=== PATIENT | female | born 2000 | race Caucasian/White ===

== ENCOUNTER → 2023-02-10 | Outpatient (CLI) | payer OTHER ==
--- NOTE | 2023-02-10 11:36 | XR ---
EXAMINATION TYPE: XR ankle complete LT DATE OF EXAM: 02/10/2023 COMPARISON: NONE HISTORY: Pain TECHNIQUE: 3 views of the left ankle are submitted for evaluation. FINDINGS: There is no evidence for acute fracture or dislocation. Ankle mortise is intact. Minimal so ft tissue swelling of the ankle. No radiopaque foreign body. IMPRESSION: 1. No evidence for acute fracture. 2. Minimal soft tissue swelling of the ankle.
--- NOTE | 2023-02-10 11:37 | XR ---
EXAMINATION TYPE: XR knee complete LT DATE OF EXAM: 02/10/2023 11:05 AM INDICATION: Patient age:Female; 22 years old; Reason for study: M25.562 [id number]; [facility]. COMPARISON: None. TECHNIQUE: The Left knee(s) was examined in Frontal, lateral and oblique projections. FINDINGS: No evidence of any acute osseous pathology, soft tissue swelling, or joint effusion is no efren. IMPRESSION: 1. No acute osseous pathology.
== END | disposition home or self-care (01) ==
LOC: RADXRMAIN 10:34
PROVIDERS: ATTEND Family Medicine
DX: M25.562 Pain in left knee (principal); M79.89 Other specified soft tissue disorders

== ENCOUNTER 2023-10-15 09:06 | Emergency (ER) | payer OTHER ==
--- NOTE | 2023-10-15 09:27 | ED ---
Abdominal Pain HPI - General Chief Complaint: Abdominal Pain Stated Complaint: L Abd Pain Time Seen by Provider: 10/15/23 09:11 Source: patient, RN notes reviewed Mode of arrival: ambulatory Limitations: no limitations - History of Present Illness Initial Comments: This is a 23-year-old female who presents to the emergency department for abdominal pain. States that last month she had been dealing with left upper quadrant abdominal pain. She went to [facility] and her workup was negative. She was advised that this may be related to gas. She took gas medication without relief in symptoms. She was then advised that it may be related to anxiety and started taking anxiety medications. She did seem to have some improvement after that, however pain then returned again a couple of days ago. States that it seems to be coming and going in waves. Denies any nausea/vomiting associated with this. Also denies any diarrhea or constipation. MD Complaint: abdominal pain - Related Data Home Medications Medication Instructions Recorded Confirmed Norelgestromin/Ethin.estradiol 1 patch TRANSDERM SA 10/15/23 10/15/23 [Xulane 150-35 Mcg/Day Patch] cloNIDine HCL [Catapres] 0.1 mg PO BID 10/15/23 10/15/23 Previous Rx's Medication Instructions Recorded Dicyclomine [Bentyl] 20 mg PO QID PRN #20 tablet 10/15/23 Allergies Allergy/AdvReac Type Severity Reaction Status Date / Time sulfamethoxazole AdvReac Nausea/Rash Verified 10/15/23 10:56 [From Bactrim] /Hives trimethoprim [From Bactrim] AdvReac Nausea Verified 10/07/14 17:04 Review of Systems ROS Statement: Those systems with pertinent positive or pertinent negative responses have been documented in the HPI. ROS Other: All systems not noted in ROS Statement are negative. Past Medical History Past Medical History: No Reported History History of Any Multi-Drug Resistant Organisms: None Reported Past Surgical History: No Surgical Hx Reported Past Psychological History: No Psychological Hx Reported Smoking Status: Vaper Past Alcohol Use History: None Reported Past Drug Use History: None Reported General Exam Limitations: no limitations General appearance: alert, in no apparent distress Head exam: Present: atraumatic, normocephalic, normal inspection Respiratory exam: Present: normal lung sounds bilaterally. Absent: respiratory distress, wheezes, rales, rhonchi, stridor Cardiovascular Exam: Present: regular rate, normal rhythm, normal heart sounds. Absent: systolic murmur, diastolic murmur, rubs, gallop, clicks GI/Abdominal exam: Present: soft, tenderness (LUQ), normal bowel sounds. Absent: distended, guarding, rebound, rigid Neurological exam: Present: alert, oriented X3, CN II-XII intact Psychiatric exam: Present: normal affect, normal mood Skin exam: Present: warm, dry, intact, normal color. Absent: rash Course Vital Signs 10/15/23 10/15/23 09:07 11:31 Temperature 97.8 F 98.4 F Pulse Rate 109 H 89 Respiratory 18 18 Rate Blood Pressure 129/85 120/58 O2 Sat by Pulse 100 99 Oximetry Medical Decision Making - Medical Decision Making This is a 23 year old female who presents to the emergency department for abdominal pain. Was pt. sent in by a medical professional or institution? @ -No Did you speak to anyone other than the patient for history? @ -No Did you review nursing and triage notes? @ -Yes, and I agree, it is accurate with regards to the patient's symptoms. Were old charts reviewed? @ -No Differential Diagnosis? @ -Differential Abdominal Pain Women: Appendicitis, Cholecystitis, diverticulosis, ischemic bowel, pancreatitis, hepatitis, UTI, gastroenteritis, AAA, incarcerated hernia, bowel obstruction, constipation, inflammatory bowel, hepatitis, peptic ulcer disease, splenic infarction, perforated viscus, vulvitis, ovarian torsion, PID, kidney stone, placenta abruption, this is not meant to be an all-inclusive list EKG interpreted by me (3pts min.)? @ -Not obtained X-rays interpreted by me (1pt min.)? @ -Not obtained CT interpreted by me (1pt min.)? @ -CT scan of the abdomen and pelvis obtained. My interpretation identifies no evidence of bowel wall thickening or free air. U/S interpreted by me (1pt. min.)? @ -Not obtained What testing was considered but not performed? (CT, X-rays, U/S, labs)? Why? @ -None What meds were considered but not given? Why? @ -None Did you discuss the management of the patient with other professionals? @ -No Did you reconcile home meds? @ -No Was smoking cessation discussed for >3mins.? @ -No Was critical care preformed (if so, how long)? @ -No Were there social determinants of health that impacted care today? How? (Homelessness, low income, unemployed, alcoholism, drug addiction, transportation, low edu. Level, literacy, decrease access to med. care, alf, rehab)? @ -No Was there de-escalation of care discussed even if they declined? (Discuss DNR or withdrawal of care, Hospice)? @ -No What co-morbidities impacted this encounter? (DM, HTN, Smoking, COPD, CAD, Cancer, CVA, Hep., AIDS, mental health diagnosis, sleep apnea, morbid obesity)? @ -None Was patient admitted / discharged? @ -Discharged. Lab work unremarkable. Urinalysis has some bacteria, but was not overtly positive for signs of infection. Urine sent for culture. CT scan of the abdomen pelvis obtained revealing no acute process. Patient treated with IV fluids, Toradol, and Bentyl. She had significant relief in symptoms afterwards. Discussed with the patient the possibility of her developing IBS given that this has been a recurrent issue. Rx for Bentyl provided with dosing instructions reviewed. Patient discharged home in stable condition and advised to follow-up with her primary care provider. Undiagnosed new problem with uncertain prognosis? @ -None Drug Therapy requiring intensive monitoring for toxicity (Heparin, Nitro, Insulin, Cardizem)? @ -None Were any procedures done? @ -None Diagnosis/symptom? @ -Abdominal pain Acute, or Chronic, or Acute on Chronic? @ -Acute Uncomplicated (without systemic symptoms) or Complicated (systemic symptoms)? @ -Uncomplicated Side effects of treatment? @ -None Exacerbation, Progression, or Severe Exacerbation] @ -Not applicable Poses a threat to life or bodily function? @ -No Return precautions reviewed in depth, the patient is instructed to return to the emergency department with any new, worsening, or concerning symptoms. Patient verbalized understanding. This case was discussed in detail with the attending ED physician, Dr. Mccullough. Presentation, findings, and treatment plan discussed in detail as well. - Lab Data Result diagrams: 10/15/23 09:21 10/15/23 09:21 Lab Results 10/15/23 10/15/23 10/15/23 Range/Units 09:21 09:21 09:21 WBC 6.5 (3.8-10.6) k/uL RBC 4.36 (3.80-5.40) m/uL Hgb 12.2 (11.4-16.0) gm/dL Hct 38.6 (34.0-46.0) % MCV 88.5 (80.0-100.0) fL MCH 28.1 (25.0-35.0) pg MCHC 31.7 (31.0-37.0) g/dL RDW 14.5 (11.5-15.5) % Plt Count 335 (150-450) k/uL MPV 8.1 Neutrophils % 66 % Lymphocytes % 26 % Monocytes % 4 % Eosinophils % 1 % Basophils % 1 % Neutrophils # 4.3 (1.3-7.7) k/uL Lymphocytes # 1.7 (1.0-4.8) k/uL Monocytes # 0.3 (0-1.0) k/uL Eosinophils # 0.1 (0-0.7) k/uL Basophils # 0.0 (0-0.2) k/uL Sodium 137 (137-145) mmol/L Potassium 5.5 H (3.5-5.1) mmol/L Chloride 107 (98-107) mmol/L Carbon Dioxide 19 L (22-30) mmol/L Anion Gap 11 mmol/L BUN 7 (7-17) mg/dL Creatinine 0.82 (0.52-1.04) mg/dL Est GFR (CKD-EPI)AfAm >90 (>60 ml/min/1.73 sqM) Est GFR (CKD-EPI)NonAf >90 (>60 ml/min/1.73 sqM) Glucose 104 H (74-99) mg/dL Plasma Lactic Acid Bari (0.7-2.0) mmol/L Calcium 9.4 (8.4-10.2) mg/dL Total Bilirubin 1.2 (0.2-1.3) mg/dL AST 51 H (14-36) U/L ALT 18 (4-34) U/L Alkaline Phosphatase 59 (38-126) U/L Total Protein 8.1 (6.3-8.2) g/dL Albumin 4.5 (3.5-5.0) g/dL Amylase 50 (30-110) U/L Lipase 91 (23-300) U/L HCG, Qual Not Detected Urine Color Yellow Urine Appearance Cloudy H (Clear) Urine pH 6.0 (5.0-8.0) Ur Specific Fleming 1.019 (1.001-1.035) Urine Protein Trace H (Negative) Urine Glucose (UA) Negative (Negative) Urine Ketones Negative (Negative) Urine Blood Negative (Negative) Urine Nitrite Negative (Negative) Urine Bilirubin Negative (Negative) Urine Urobilinogen 2.0 (<2.0) mg/dL Ur Leukocyte Esterase Negative (Negative) Urine WBC 4 (0-5) /hpf Ur Squamous Epith Cells 8 H (0-4) /hpf Urine Bacteria Many H (None) /hpf Urine Mucus Rare H (None) /hpf 10/15/23 Range/Units 09:21 WBC (3.8-10.6) k/uL RBC (3.80-5.40) m/uL Hgb (11.4-16.0) gm/dL Hct (34.0-46.0) % MCV (80.0-100.0) fL MCH (25.0-35.0) pg MCHC (31.0-37.0) g/dL RDW (11.5-15.5) % Plt Count (150-450) k/uL MPV Neutrophils % % Lymphocytes % % Monocytes % % Eosinophils % % Basophils % % Neutrophils # (1.3-7.7) k/uL Lymphocytes # (1.0-4.8) k/uL Monocytes # (0-1.0) k/uL Eosinophils # (0-0.7) k/uL Basophils # (0-0.2) k/uL Sodium (137-145) mmol/L Potassium (3.5-5.1) mmol/L Chloride (98-107) mmol/L Carbon Dioxide (22-30) mmol/L Anion Gap mmol/L BUN (7-17) mg/dL Creatinine (0.52-1.04) mg/dL Est GFR (CKD-EPI)AfAm (>60 ml/min/1.73 sqM) Est GFR (CKD-EPI)NonAf (>60 ml/min/1.73 sqM) Glucose (74-99) mg/dL Plasma Lactic Acid Bari 1.0 (0.7-2.0) mmol/L Calcium (8.4-10.2) mg/dL Total Bilirubin (0.2-1.3) mg/dL AST (14-36) U/L ALT (4-34) U/L Alkaline Phosphatase (38-126) U/L Total Protein (6.3-8.2) g/dL Albumin (3.5-5.0) g/dL Amylase (30-110) U/L Lipase (23-300) U/L HCG, Qual Urine Color Urine Appearance (Clear) Urine pH (5.0-8.0) Ur Specific Fleming (1.001-1.035) Urine Protein (Negative) Urine Glucose (UA) (Negative) Urine Ketones (Negative) Urine Blood (Negative) Urine Nitrite (Negative) Urine Bilirubin (Negative) Urine Urobilinogen (<2.0) mg/dL Ur Leukocyte Esterase (Negative) Urine WBC (0-5) /hpf Ur Squamous Epith Cells (0-4) /hpf Urine Bacteria (None) /hpf Urine Mucus (None) /hpf - Radiology Data Radiology results: report reviewed, image reviewed Disposition Clinical Impression: Abdominal pain Disposition: HOME SELF-CARE Instructions (If sedation given, give patient instructions): Abdominal Pain (ED) Additional Instructions: Return to the emergency department with any new, worsening, or concerning symptoms. You can try taking the Bentyl up to 4 times daily as needed for abdominal pain/discomfort. Contact the corner trimmer operator as listed below for a follow-up appointment and further evaluation of ongoing abdominal pain. Follow up with your primary care provider in 1-2 days. Prescriptions: Dicyclomine [Bentyl] 20 mg PO QID PRN #20 tablet PRN Reason: Gi Upset Is patient prescribed a controlled substance at d/c from ED?: No Referrals: Eh Brower DO [Primary Care Provider] - 1-2 days Rozina Avendano MD [STAFF PHYSICIAN] - 1-2 days Time of Disposition: 11:25
[2023-10-15] MEDS: KETOROLAC 15 MG/ML 1 ML VIAL IVP STA (09:37)
[2023-10-15] MEDS: SODIUM CHLORIDE 0.9% 1,000 ML IV STA (09:37)
[2023-10-15] MEDS: DICYCLOMINE 10 MG/ML 2 ML AMP IM STA (09:40)
[2023-10-15 09:42] VITALS: RESP 18
[2023-10-15 09:44] LABS: Basophils % (A) 1 %; Eosinophils # (A) 0.1 k/uL (0-0.7); Eosinophils % (A) 1 %; HCT 38.6 % (34.0-46.0); HGB 12.2 gm/dL (11.4-16.0); Lymphocytes # (A) 1.7 k/uL (1.0-4.8); Lymphocytes % (A) 26 %; MCH 28.1 pg (25.0-35.0); MCHC 31.7 g/dL (31.0-37.0); MCV 88.5 fL (80.0-100.0); Mean Platelet Volume 8.1; Monocytes # (A) 0.3 k/uL (0-1.0); Monocytes % (A) 4 %; Neutrophils # (A) 4.3 k/uL (1.3-7.7); Neutrophils % (A) 66 %; Platelet Count 335 k/uL (150-450); RBC 4.36 m/uL (3.80-5.40); RDW 14.5 % (11.5-15.5); WBC 6.5 k/uL (3.8-10.6)
[2023-10-15 09:52] LABS: Appearance,Urine Cloudy (Clear); Bacteria,Urine Many /hpf; Bilirubin,Urine Negative (Negative); Blood,Urine Negative (Negative); Color,Urine Yellow; Glucose,Urine (UA) Negative (Negative); Ketones,Urine Negative (Negative); Leukocyte Esterase,Urine Negative (Negative); Mucus,Urine Rare /hpf; Nitrite,Urine Negative (Negative); Protein,Urine Trace (Negative); Specific Gravity,Urine 1.019 (1.001-1.035); Squamous Epithelial Cell,Urine 8 /hpf (0-4); WBC,Urine 4 /hpf (0-5)
[2023-10-15 09:54] LABS: HCG,Qualitative Serum Not Detected
[2023-10-15 09:57] LABS: ALT 18 U/L (4-34); AST 51 U/L (14-36); African American GFR (CKD) >90 (>60 ml/min/1.73 sqM); Albumin 4.5 g/dL (3.5-5.0); Alkaline Phosphatase 59 U/L (38-126); Amylase 50 U/L (30-110); Anion Gap 11 mmol/L; Blood Urea Nitrogen 7 mg/dL (7-17); Calcium 9.4 mg/dL (8.4-10.2); Carbon Dioxide 19 mmol/L (22-30); Chloride 107 mmol/L (98-107); Glucose 104 mg/dL (74-99); Lipase 91 U/L (23-300); Non-African American GFR(CKD) >90 (>60 ml/min/1.73 sqM); Sodium 137 mmol/L (137-145); Total Bilirubin 1.2 mg/dL (0.2-1.3); Total Protein 8.1 g/dL (6.3-8.2)
[2023-10-15 10:00] LABS: Potassium 5.5 mmol/L (3.5-5.1)
--- NOTE | 2023-10-15 10:56 | CT ---
EXAMINATION TYPE: CT abdomen pelvis w con CT DLP: 734.1 mGycm, Automated exposure control for dose reduction was used. DATE OF EXAM: 10/15/2023 10:28 AM COMPARISON: None. CLINICAL INDICATION:Female, 23 years old with history of LUQ pain; LUQ pain TECHNIQUE: Axial CT abdomen pelvis w con;Sagittal and coronal reformats were created on a separate w orkstation. Contrast used:100 mL of Isovue 300 with IV Contrast, (none if empty) Oral contrast used: without Oral Contrast (none if empty) FINDINGS: LOWER CHEST: Unremarkable ABDOMEN LIVER: Unremarkable GALLBLADDER AND BILE DUCTS: Unremarkable. PANCREAS: Unremarkable. SPLEEN: Unremarkable. ADRENAL GLANDS: Unremarkable. KIDNEYS AND URETERS: No evidence of hydronephrosis or renal calculus. The ureters are unremarkable. PELVIS BLADDER: Unremarkable REPRODUCTIVE: Unremarkable. ABDOMEN & PELVIS STOMACH AND BOWEL: Stomach and duodenum are unremarkable. No evidence of bowel obstruction. PERITONEUM/RETROPERITONEUM: No evidence of pneumoperitoneum or free fluid. VASCULATURE: No evidence of aortic aneurysm. MUSCULOSKELETAL: No acute osseous abnormalities LYMPH NODES: No gross evidence for lymphadenopathy. SOFT TISSUE/ABDOMINAL WALL: Unremarkable IMPRESSION: 1. No acute process detected.
[2023-10-15 11:38] VITALS: BP 120/58; PULSE 89; TEMP 98.4
== END 2023-10-15 11:36 | disposition home or self-care (01) ==
LOC: EC 09:06
DX: R10.12 Left upper quadrant pain (principal); F17.290 Nicotine dependence, other tobacco product, uncomplicated; Z88.1 Allergy status to other antibiotic agents; Z88.2 Allergy status to sulfonamides
CPT/HCPCS: 99284; 96374; 96372; 96361; 36415; 80053; 82150; 83605; 83690; 85025; 81001; 84703; 87086; 74177; J0500; J1885; Q9967

== ENCOUNTER → 2023-11-11 | Outpatient (CLI) | payer BC ==
[2023-11-12 02:56] LABS: Basophils # (A) 0.05 X 10*3/uL (0.00-0.10); Basophils % (A) 0.6 %; Eosinophils # (A) 0.13 X 10*3/uL (0.04-0.35); Eosinophils % (A) 1.6 %; HCT 39.6 % (37.2-46.3); HGB 12.5 g/dL (12.0-15.0); Lymphocytes # (A) 2.22 X 10*3/uL (0.90-5.00); Lymphocytes % (A) 27.6 %; MCH 28.7 pg (27.0-32.0); MCHC 31.6 g/dL (32.0-37.0); Mean Platelet Volume 10.7 FL (9.5-12.2); Monocytes # (A) 0.66 X 10*3/uL (0.20-1.00); Monocytes % (A) 8.2 %; NRBC Per 100 WBC 0 X 10*3/uL (0.00-0.01); Neutrophils # (A) 4.97 X 10*3/uL (1.80-7.70); Neutrophils % (A) 61.8 %; Platelet Count 416 X 10*3/uL (140-440); RBC 4.35 X 10*6/uL (4.10-5.20); WBC 8.05 X 10*3/uL (4.50-10.00)
[2023-11-12 03:52] LABS: ALT 18 U/L (8-44); AST 20 U/L (13-35); Albumin 4.4 g/dL (3.8-4.9); Albumin/Globulin Ratio 1.57 Ratio (1.60-3.17); Alkaline Phosphatase 62 U/L (41-126); BUN/Creat Ratio 6.88 Ratio (12.00-20.00); Blood Urea Nitrogen 5.5 mg/dL (9.0-27.0); Calcium 9.8 mg/dL (8.7-10.3); Carbon Dioxide 22.8 mmol/L (21.6-31.8); Chloride 105 mmol/L (96-109); Globulin 2.8 g/dL (1.6-3.3); Glucose 69 mg/dL (70-110); Potassium 4.4 mmol/L (3.5-5.5); Sodium 140 mmol/L (135-145); Total Bilirubin <0.2 mg/dL (0.3-1.2); Total Protein 7.2 g/dL (6.2-8.2)
[2023-11-12 04:00] LABS: Hepatitis A Antibody IgM Nonreactive (Nonreactive); Hepatitis B Core IgM Nonreactive (Nonreactive); Hepatitis B Surface Antigen Nonreactive (Nonreactive); Hepatitis C IgG Antibody Nonreactive (Nonreactive)
[2023-11-12 04:10] LABS: Erythrocyte Sedimentation Rate 14 mm/Hr (0-20)
[2023-11-12 05:32] LABS: Gliadin AB IgA, Deaminated Negative (Negative); Gliadin AB IgA, Unit <0.5 U/mL; Gliadin AB IgG, Deaminated Negative (Negative); Gliadin AB IgG, Unit <0.4 U/mL
== END | disposition home or self-care (01) ==
LOC: LABWHC1 15:10
PROVIDERS: ATTEND Internal Medicine Gastroenterology
DX: R10.9 Unspecified abdominal pain (principal); R74.01 Elevation of levels of liver transaminase levels
CPT/HCPCS: 36415; 80053; 80074; 83516; 85025; 85652; 86140

== ENCOUNTER 2023-12-28 08:58 | Day surgery (SDC) | payer BC, OTHER ==
[2023-12-27 10:35] VITALS: BMI 30.1
[2023-12-28 09:28] VITALS: TEMP 98
[2023-12-28] MEDS: IV FLUID CONTINUATION 1,000 ML IV ONE (09:28)
[2023-12-28] MEDS: LACTATED RINGERS 1,000 ML IV SCH (09:34)
[2023-12-28] MEDS ORDERED: PROPOFOL 10 MG/ML 20 ML VIAL IV ONE (10:07)
[2023-12-28] MEDS ORDERED: fentaNYL (PF) 50 MCG/ML 2 ML AMP ONE (10:07)
[2023-12-28] MEDS ORDERED: LIDOCAINE 1% INJ 10MG/ML (20 ML MDV) ONE (10:07)
--- NOTE | 2023-12-28 10:14 | P.PCN ---
Date of Procedure: 12/28/23 Procedure(s) Performed: BRIEF HISTORY: Patient is a 23-year-old, pleasant, white female scheduled for an upper endoscopy as a part evaluation of epigastric pain associated with nausea vomiting and heartburn for the last 4 months duration. PROCEDURE PERFORMED: Esophagogastroduodenoscopy with biopsy. PREOPERATIVE DIAGNOSIS: Abdominal pain, intermittent nausea vomiting and heartburn. IV sedation per anesthesia. PROCEDURE: After informed consent was obtained, the patient was brought into the endoscopy unit. IV sedation was administered by Anesthesia under continuous monitoring. Initially the Olympus GIF-140 video endoscope was inserted into the mouth. Esophagus intubated without any difficulty. It was gradually advanced into the stomach and duodenum and carefully examined. The bulb and the second part of the duodenum appeared normal. Biopsies were done from the duodenum to evaluate for celiac disease. The scope at this time was withdrawn to the stomach, adequately insufflated with air, and upon careful examination, mucosa of the antrum, had mild gastritis and biopsies were done from this area. Mucosa body, cardia and the fundus appeared normal. The scope was then withdrawn into the esophagus. The GE junction was located at 39 cm from the incisors. There was some erythema of the GE junction consistent with LA grade a reflux esophagitis. The rest of the esophagus appeared normal. There were no erosions or ulcerations seen and the patient tolerated the procedure well. IMPRESSION: 1. Mild antral gastritis. 2. Mild erythema of the GE junction consistent with LA grade a reflux esophagitis. RECOMMENDATIONS: The findings of this examination were discussed with the patient as well as her family. She was advised to follow-up with the biopsy results. Continue with Pepcid 20 mg twice daily and follow antireflux measures. Follow-up in the office in 2 weeks..
[2023-12-28 10:37] VITALS: RESP 16
[2023-12-28 10:38] VITALS: BP 119/80; PULSE 60
== END 2023-12-28 10:59 | disposition home or self-care (01) ==
LOC: ORWHC2ENDO 08:58
PROVIDERS: ATTEND Internal Medicine Gastroenterology
DX: K29.50 Unspecified chronic gastritis without bleeding (principal); K21.00 Gastro-esophageal reflux disease with esophagitis, without bleeding; I10 Essential (primary) hypertension; F41.9 Anxiety disorder, unspecified; F17.290 Nicotine dependence, other tobacco product, uncomplicated; Z79.899 Other long term (current) drug therapy; Z88.2 Allergy status to sulfonamides
CPT/HCPCS: 81025; 43239; J2001; J3010; J2704; 88305

== ENCOUNTER → 2024-06-21 | Outpatient (CLI) | payer OTHER ==
[2024-06-21 15:12] LABS: Basophils # (A) 0.07 X 10*3/uL (0.00-0.10); Basophils % (A) 0.8 %; Eosinophils % (A) 1.1 %; HCT 35.4 % (37.2-46.3); HGB 11.3 g/dL (12.0-15.0); Lymphocytes # (A) 2.12 X 10*3/uL (0.90-5.00); Lymphocytes % (A) 23.2 %; MCH 27.2 pg (27.0-32.0); MCHC 31.9 g/dL (32.0-37.0); MCV 85.1 FL (80.0-97.0); Mean Platelet Volume 9.8 FL (9.5-12.2); Monocytes # (A) 0.51 X 10*3/uL (0.20-1.00); Monocytes % (A) 5.6 %; NRBC Per 100 WBC 0 X 10*3/uL (0.00-0.01); Neutrophils # (A) 6.31 X 10*3/uL (1.80-7.70); Platelet Count 409 X 10*3/uL (140-440); RBC 4.16 X 10*6/uL (4.10-5.20); RDW 15.1 % (11.5-14.5); WBC 9.14 X 10*3/uL (4.50-10.00)
[2024-06-21 15:58] LABS: % Iron Saturation 5.07 (12.00-45.00); ALT 12 U/L (8-44); AST 18 U/L (13-35); Albumin 4.1 g/dL (3.8-4.9); Albumin/Globulin Ratio 1.46 Ratio (1.60-3.17); Alkaline Phosphatase 76 U/L (41-126); BUN/Creat Ratio 8.44 Ratio (12.00-20.00); Blood Urea Nitrogen 7.6 mg/dL (9.0-27.0); Calcium 9.8 mg/dL (8.7-10.3); Carbon Dioxide 21.5 mmol/L (21.6-31.8); Chloride 105 mmol/L (96-109); Globulin 2.8 g/dL (1.6-3.3); Glucose 93 mg/dL (70-110); Iron 30 UG/DL (50-170); Potassium 4.4 mmol/L (3.5-5.5); Sodium 138 mmol/L (135-145); T4, Free (Free Thyroxine) 0.91 ng/dL (0.80-1.80); Total Bilirubin <0.2 mg/dL (0.3-1.2); Total Iron Binding Capacity 592 UG/DL (228-460); Total Protein 6.9 g/dL (6.2-8.2)
== END | disposition home or self-care (01) ==
LOC: LABWHC1 10:19
PROVIDERS: ATTEND Nurse Practitioner Family
DX: R53.81 Other malaise (principal)
CPT/HCPCS: 36415; 80053; 82306; 83540; 83550; 84439; 84443; 85025; 87636

== ENCOUNTER → 2024-07-07 | Outpatient (CLI) | payer OTHER ==
--- NOTE | 2024-07-07 09:28 | US ---
EXAMINATION TYPE: US pelvic complete DATE OF EXAM: 07/07/2024 COMPARISON: NONE CLINICAL INDICATION: Female, 23 years old with history of R10.9 UNSPECIFIED ABDOMINAL PAIN; Pain TECHNIQUE: Transabdominal (TA). Doppler imaging: Not performed. FINDINGS: EXAM MEASUREMENTS: Uterus: 7.3 x 3.6 x 4.2 cm Endometrial Stripe: .6 cm Right Ovary: 3.9 x 2.4 x 2.5 cm Left Ovary: 1.9 x 1.4 x 1.7 cm 1. Uterus: Anteverted wnl 2. Endometrium:Limited 3. Right Ovary: Prominently anechoic 4. Left Ovary: wnl 5. Bilateral Adnexa: wnl 6. Posterior cul-de-sac: wnl IMPRESSION: No evidence for acute process. Endometrium within normal limits for thickness. [facility], , 07/07/2024 9:26 AM
--- NOTE | 2024-07-07 11:01 | US ---
EXAMINATION TYPE: US abdomen complete DATE OF EXAM: 07/07/2024 COMPARISON: NONE CLINICAL INDICATION: Female, 23 years old with history of R10.9 UNSPECIFIED ABDOMINAL PAIN; pain TECHNIQUE: Grayscale and color Doppler imaging of the abdomen was performed. FINDINGS: EXAM MEASUREMENTS: Liver Length: 12.7 cm Gallbladder Wall: .2 cm CBD: .7 cm, color Doppler imaging was utilized to isolate the common bile duct for measurement. Spleen: 10.1 cm Right Kidney: 9.3 x 3.3 x 4.1 cm Left Kidney: 9.8 x 4.2 x 4.7 cm BILLING SERVICES MANAGER NOTES: Pancreas: Obscured by bowel gas Liver: Within normal limits no evidence for mass dilated ducts or cystic structures. Gallbladder: No stones seen Evidence for sonographic Foss's sign: No CBD: wnl Spleen: wnl Right Kidney: No hydronephrosis or masses seen Left Kidney: No hydronephrosis or masses seen Upper IVC: wnl Abd Aorta: wnl The liver is homogenous. The intrahepatic portion of the IVC and proximal abdominal aorta are within normal limits. There is no evidence of cholelithiasis. Common bile duct is unremarkable. The visu alized portions of the pancreas are homogenous. The spleen is unremarkable. Kidneys are symmetric a nd free of hydronephrosis. No renal lesions are seen. IMPRESSION: No evidence for acute process. [facility], , 07/07/2024 10:59 AM
== END | disposition home or self-care (01) ==
LOC: RADUSWWP 07:12
PROVIDERS: ATTEND Internal Medicine Gastroenterology
DX: R10.9 Unspecified abdominal pain (principal)
CPT/HCPCS: 76700; 76856

== ENCOUNTER 2024-07-21 21:34 | Emergency (ER) | payer OTHER ==
[2024-07-21 21:41] VITALS: TEMP 98
--- NOTE | 2024-07-21 22:15 | ED ---
General Adult HPI - General Chief complaint: GI Bleed Stated complaint: Blood in Stool Time Seen by Provider: 07/21/24 21:45 Source: patient, RN notes reviewed Mode of arrival: ambulatory Limitations: no limitations - History of Present Illness Initial comments: This is a 23-year-old female with no significant medical history presenting to emergency department for complaint of bright red blood in her stool over the past 3 days. Patient states that she does have a history of hemorrhoids however is concerned with the quantity of blood. She denies abdominal pain, pain with defecation, lightheadedness, dizziness, heart palpitations, nausea or vomiting. Patient does follow with GI specialist for chronic right-sided abdominal pain. Patient states that she has not attempted any medications at home to alleviate symptoms. - Related Data Home Medications Medication Instructions Recorded Confirmed Norelgestromin/Ethin.estradiol 1 patch TRANSDERM SA 10/15/23 12/27/23 [Xulane 150-35 Mcg/Day Patch] cloNIDine HCL [Catapres] 0.1 mg PO HS 10/15/23 12/27/23 Famotidine [Pepcid] 20 mg PO DAILY 12/27/23 12/27/23 Previous Rx's Medication Instructions Recorded Hydrocortisone Cream 1 applic TOPICAL BID #28 gm 07/21/24 [Hydrocortisone 2.5% Cream] Allergies Allergy/AdvReac Type Severity Reaction Status Date / Time sulfamethoxazole AdvReac Nausea/Rash Verified 07/21/24 21:40 [From Bactrim] /Hives trimethoprim [From Bactrim] AdvReac Nausea Verified 07/21/24 21:40 Review of Systems ROS Statement: Those systems with pertinent positive or pertinent negative responses have been documented in the HPI. ROS Other: All systems not noted in ROS Statement are negative. Past Medical History Past Medical History: GERD/Reflux, Hypertension History of Any Multi-Drug Resistant Organisms: None Reported Past Surgical History: No Surgical Hx Reported Additional Past Surgical History / Comment(s): endoscope 01/2024 Past Anesthesia/Blood Transfusion Reactions: No Reported Reaction Past Psychological History: Anxiety Smoking Status: Vaper Past Alcohol Use History: None Reported Past Drug Use History: None Reported - Past Family History Mother Family Medical History: No Reported History General Exam Limitations: no limitations ENT exam: Present: normal exam, mucous membranes moist Respiratory exam: Present: normal lung sounds bilaterally. Absent: respiratory distress, wheezes, rales, rhonchi, stridor Cardiovascular Exam: Present: regular rate, normal rhythm, normal heart sounds. Absent: systolic murmur, diastolic murmur, rubs, gallop, clicks GI/Abdominal exam: Present: soft, normal bowel sounds. Absent: distended, tenderness, guarding, rebound, rigid Rectal exam: Present: normal rectal tone, hemorrhoids. Absent: black stool, mass, tenderness Extremities exam: Present: normal inspection, full ROM, normal capillary refill. Absent: tenderness, pedal edema, joint swelling, calf tenderness Back exam: Present: normal inspection Course Vital Signs 07/21/24 07/21/24 21:36 22:43 Temperature 98.0 F Pulse Rate 94 81 Respiratory 20 16 Rate Blood Pressure 150/89 141/78 O2 Sat by Pulse 100 99 Oximetry Medical Decision Making - Medical Decision Making Was pt. sent in by a medical professional or institution (, PA, MOTION PICTURE PRINTER, urgent care, hospital, or prison...) When possible be specific @ -No Did you speak to anyone other than the patient for history (EMS, parent, family, police, friend...)? What history was obtained from this source @ -No Did you review nursing and triage notes (agree or disagree)? Why? @ -I reviewed and agree with nursing and triage notes Were old charts reviewed (outside hosp., previous admission, EMS record, old EKG, old radiological studies, urgent care reports/EKG's, prison records)? Report findings @ -No old charts were reviewed Differential Diagnosis (chest pain, altered mental status, abdominal pain women, abdominal pain men, vaginal bleeding, weakness, fever, dyspnea, syncope, headache, dizziness, GI bleed, back pain, seizure, CVA, palpatations, mental health, musculoskeletal)? @ -Differential GI Bleed: Esophageal varices, aortoenteric fistula, Clementina-Puga, gastritis, peptic ulcer disease, diverticulosis, inflammatory bowel disease, hemorrhoids, fissure, colitis, malignancy, Meckel's diverticulum, this is not meant to be an all- inclusive list. EKG interpreted by me (3pts min.). @ -none X-rays interpreted by me (1pt min.). @ -None CT interpreted by me (1pt min.). @ -None done U/S interpreted by me (1pt. min.). @ -None done What testing was considered but not performed or refused? (CT, X-rays, U/S, labs)? Why? @ -None What meds were considered but not given or refused? Why? @ -None Did you discuss the management of the patient with other professionals (professionals i.e. , PA, MOTION PICTURE PRINTER, lab, RT, psych nurse, social service worker, process control specialist, teacher, nuclear medicine officer, heel caser)? Give summary @ -No Was smoking cessation discussed for >3mins.? @ -No Was critical care preformed (if so, how long)? @ -No Were there social determinants of health that impacted care today? How? (Homelessness, low income, unemployed, alcoholism, drug addiction, transportati on, low edu. Level, literacy, decrease access to med. care, skilled nursing, rehab)? @ -No Was there de-escalation of care discussed even if they declined (Discuss DNR or withdrawal of care, Hospice)? DNR status @ -No What co-morbidities impacted this encounter? (DM, HTN, Smoking, COPD, CAD, Cancer, CVA, ARF, Chemo, Hep., AIDS, mental health diagnosis, sleep apnea, morbid obesity)? @ -None Was patient admitted / discharged? Hospital course, mention meds given and route, prescriptions, significant lab abnormalities, going to OR and other pertinent info. @ -Discharge. 23 female presenting with bright red blood in stool over the past 3 days. Patient vitals are stable. Patient denies symptoms of blood loss anemia including lightheadedness, dizziness, heart palpitations. Patient is well-appearing no signs of pallor. Rectal examination remarkable for external hemorrhoid with good rectal tone. Blood work is deferred at this time as there is medical concern the patient has had severe blood loss due to rectal hemorrhoids and patient is well-appearing. She is provided with outpatient prescription for hydrocortisone and instructed to continue with sitz bath's, increase oral fiber and hydration. Case discussed with Dr. Vazquez Undiagnosed new problem with uncertain prognosis? @ -No Drug Therapy requiring intensive monitoring for toxicity (Heparin, Nitro, Insulin, Cardizem)? @ -No Were any procedures done? @ -No Diagnosis/symptom? @ -Hemorrhoids, GI bleed Acute, or Chronic, or Acute on Chronic? @ -Acute Uncomplicated (without systemic symptoms) or Complicated (systemic symptoms)? @ -Uncomplicated Side effects of treatment? @ -No Exacerbation, Progression, or Severe Exacerbation? @ -No Poses a threat to life or bodily function? How? (Chest pain, USA, OR, pneumonia, PE, COPD, DKA, ARF, appy, cholecystitis, CVA, Diverticulitis, Homicidal, Suicidal, threat to staff... and all critical care pts) @ -No Disposition Clinical Impression: Hemorrhoids Disposition: HOME SELF-CARE Condition: Good Instructions (If sedation given, give patient instructions): Gastrointestinal Bleeding (ED) Additional Instructions: Please return to the Emergency Department if symptoms worsen or any other concerns. Prescriptions: Hydrocortisone Cream [Hydrocortisone 2.5% Cream] 1 applic TOPICAL BID #28 gm Is patient prescribed a controlled substance at d/c from ED?: No Referrals: Eh Brower DO [Primary Care Provider] - 1-2 days Time of Disposition: 22:36
[2024-07-21 22:46] VITALS: BP 141/78; PULSE 81; RESP 16
== END 2024-07-21 22:46 | disposition home or self-care (01) ==
LOC: EC 21:34
DX: K64.9 Unspecified hemorrhoids (principal); F17.290 Nicotine dependence, other tobacco product, uncomplicated; Z88.1 Allergy status to other antibiotic agents; Z88.2 Allergy status to sulfonamides
CPT/HCPCS: 99284

== ENCOUNTER → 2024-08-05 | Outpatient (CLI) | payer OTHER ==
--- NOTE | 2024-08-05 08:34 | MR ---
EXAMINATION TYPE: MR abdomen wo/w con DATE OF EXAM: 08/05/2024 8:19 AM COMPARISON: 07/07/2024 10/15/2023 CLINICAL INDICATION: Female, 23 years old with history of R10.9 UNSPECIFIED ABDOMINAL PAIN; PHH, Abdo cirilo pain, center/LUQ. TECHNIQUE: Multiplanar multi-sequence imaging was performed without contrast. Post contrast imaging was performed. Post IV contrast subtraction images were also submitted for review. IV Contrast: 8 mL Gadobutrol FINDINGS: LOWER CHEST: No gross irregularity. ABDOMEN Liver: No evidence for cirrhosis. Signal dropout on chemical shift out of phase imaging. Gallbladder and Bile ducts: No evidence for ductal dilation, or biliary stricture or evidence of chol edocholithiasis. The gallbladder is within normal limits. Pancreas: No ductal dilation. No evidence for solid mass. Spleen: Normal for size. Adrenal glands: Unremarkable. Kidneys: No evidence for obstructive uropathy. No suspicious renal masses. Stomach and Bowel: No evidence for bowel wall thickening or evidence for obstruction. Retroperitoneum/Peritoneum: No evidence of pneumoperitoneum or free fluid. Vasculature: No aortic aneurysm. Musculoskeletal: The osseous structures appear intact. Lymph Nodes: No gross evidence for lymphadenopathy. Abdominal wall: Unremarkable. IMPRESSION: 1. No evidence for acute abdominal process. 2. Hepatic steatosis. [facility], , 08/05/2024 8:31 AM
== END | disposition home or self-care (01) ==
LOC: RADMRIMAIN 07:26
PROVIDERS: ATTEND Internal Medicine Gastroenterology
DX: K76.0 Fatty (change of) liver, not elsewhere classified (principal); R10.12 Left upper quadrant pain
CPT/HCPCS: 74183; A9585

== ENCOUNTER → 2024-08-07 | Outpatient (CLI) | payer OTHER ==
--- NOTE | 2024-08-07 09:04 | MR ---
EXAMINATION TYPE: MR pelvis wo/w con DATE OF EXAM: 08/07/2024 8:45 AM COMPARISON: CT abdomen and pelvis October 15, 2023 and pelvic ultrasound July 07, 2024 CLINICAL INDICATION: Female, 23 years old with history of R10.9 unspecified abdominal pain, Abdominal pain, center/LUQ. IV Contrast: 8 cc Gadobutrol (None if empty) CONTRAST: Standard multiplanar, multisequence MRI departmental protocol images were obtained without contrast a nd with 8 mL intravenous Gadobutrol gadolinium contrast. FINDINGS: Persistent normal-sized anteverted uterus. No free fluid in the pelvis. No myometrium greg s. Ovaries are symmetric and within normal limits in size with bilateral follicles and/or small simple o varian cysts. No suspicious adnexal or ovarian masses are identified bilaterally. No abnormal bowel dilatation. Visualized osseous structures are intact. Urinary bladder is unremarkab le. IMPRESSION: Unremarkable study. [facility], , 08/07/2024 9:02 AM
== END | disposition home or self-care (01) ==
LOC: RADMRIMAIN 07:43
PROVIDERS: ATTEND Internal Medicine Gastroenterology
DX: R10.9 Unspecified abdominal pain (principal)
CPT/HCPCS: 72197; A9585

== ENCOUNTER → 2025-02-01 | Outpatient (CLI) | payer OTHER ==
--- NOTE | 2025-02-01 11:20 | XR ---
EXAMINATION TYPE: XR shoulder complete RT DATE OF EXAM: 02/01/2025 11:06 AM COMPARISON: None CLINICAL INDICATION: Female, 24 years old with history of M25.511 RIGHT SHOULDER PAIN; PHH, pain TECHNIQUE: XR shoulder complete RT; examined in AP, internally rotated and scapular Y projections. FINDINGS: No evidence of acute osseous pathology, joint dislocation, or soft tissue swelling. The remaining po rtions of the visualized chest are unremarkable. Degeneration changes of the acromion, distal clavic le with osteophyte formation. There is osteophyte formation of the glenoid and humeral head. There is joint space narrowing of glenohumeral joint. IMPRESSION: No acute osseous pathology. [facility], , 02/01/2025 11:18 AM
== END | disposition home or self-care (01) ==
LOC: RADXRMAIN 10:29
PROVIDERS: ATTEND Family Medicine
DX: M25.511 Pain in right shoulder (principal)